=== PATIENT | male | born 1980 | race African-American/Black ===

== ENCOUNTER 2020-12-24 10:30 | Emergency (ER) | payer SELFPAY ==
[2020-12-24] MEDS ORDERED: Sodium Chloride 0.9% 1,000 ML IV STA ×2 (11:08→12:08)
--- NOTE | 2020-12-24 12:00 | EDM.PDOC ---
ED HPI GENERAL MEDICAL PROBLEM - General Chief Complaint: Drug or Alcohol Abuse Stated Complaint: [facility] Time Seen by Provider: 12/24/20 11:02 Source of Information: Reports: Patient, RN Notes Reviewed History Limitations: Reports: No Limitations - History of Present Illness INITIAL COMMENTS - FREE TEXT/NARRATIVE: Patient is a 40-year-old male brought into the emergency department by [facility] for evaluation of altered mental status. He is a traveling [employer]ILDR[employer] that works at the [employer], shelter and did not show up for work today. His fire safety manager went to check on him and he was found, somewhat obtunded. Patient reports drinking "one Stanley ". Denies any drug use. States that he does not want to be in the hospital. Reports that he occasionally smokes cigarettes on weekends. - Related Data Allergies Allergy/AdvReac Type Severity Reaction Status Date / Time No Known Allergies Allergy Verified 12/24/20 10:36 Home Meds: Home Meds lisinopriL [Lisinopril] 10 mg PO DAILY 12/24/20 [History] Past Medical History Cardiovascular History: Reports: Hypertension Social & Family History - Tobacco Use Tobacco Use Status *Q: Current Every Day Tobacco User Years of Tobacco use: 2 Packs/Tins Daily: 0.2 - Caffeine Use Caffeine Use: Reports: Coffee - Alcohol Use Days Per Week of Alcohol Use: 2 Number of Drinks Per Day: 2 Total Drinks Per Week: 4 Date of Last Drink: 12/24/20 Time of Last Drink: 10:00 - Recreational Drug Use Recreational Drug Use: No ED ROS GENERAL - Review of Systems Review Of Systems: See Below Constitutional: Reports: No Symptoms. Denies: Fever, Chills, Weakness HEENT: Reports: No Symptoms Respiratory: Reports: No Symptoms Cardiovascular: Reports: No Symptoms. Denies: Chest Pain Endocrine: Reports: No Symptoms GI/Abdominal: Reports: No Symptoms : Reports: No Symptoms Musculoskeletal: Reports: No Symptoms Skin: Reports: No Symptoms Neurological: Reports: No Symptoms Psychiatric: Reports: No Symptoms Hematologic/Lymphatic: Reports: No Symptoms Immunologic: Reports: No Symptoms - Physical Exam Exam: See Below Exam Limited By: Intoxication General Appearance: Alert, WD/WN, No Apparent Distress Eye Exam: Bilateral Eye: PERRL Respiratory/Chest: No Respiratory Distress, Lungs Clear, Normal Breath Sounds, No Accessory Muscle Use, Chest Non-Tender Cardiovascular: Normal Peripheral Pulses, Regular Rate, Rhythm, No Edema, No Gallop, No JVD, No Murmur, No Rub GI/Abdominal: Normal Bowel Sounds, Soft, Non-Tender, No Organomegaly, No Distention, No Abnormal Bruit, No Mass Neuro Exam (Abbreviated): Alert, Oriented, CN II-XII Intact, Normal Cognition, Normal Gait, Normal Reflexes, No Motor/Sensory Deficits Extremities: Normal Inspection, Normal Range of Motion, Non-Tender, No Pedal Edema, Normal Capillary Refill Psychiatric: Normal Affect, Normal Mood Skin Exam: Warm, Dry, Intact, Normal Color, No Rash Course - Vital Signs Last Recorded V/S: Last Vital Signs Temp 98.2 F 12/24/20 10:37 Pulse 113 H 12/24/20 10:37 Resp 18 12/24/20 10:37 BP 139/104 H 12/24/20 10:37 Pulse Ox 96 12/24/20 10:37 - Orders/Labs/Meds Labs: Laboratory Tests 12/24/20 12/24/20 12/24/20 Range/Units 10:35 10:35 11:37 WBC 6.08 (4.23-9.07) K/mm3 RBC 5.00 (4.63-6.08) M/mm3 Hgb 16.0 (13.7-17.5) gm/dl Hct 46.9 (40.1-51.0) % MCV 93.8 H (79.0-92.2) fl MCH 32.0 (25.7-32.2) pg MCHC 34.1 (32.2-35.5) g/dl RDW Std Deviation 50.5 H (35.1-43.9) fL Plt Count 167 (163-337) K/mm3 MPV 10.7 (9.4-12.3) fl Neut % (Auto) 58.3 (34.0-67.9) % Lymph % (Auto) 35.7 (21.8-53.1) % Bucks % (Auto) 5.3 (5.3-12.2) % Eos % (Auto) 0.2 L (0.8-7.0) Baso % (Auto) 0.3 (0.1-1.2) % Neut # (Auto) 3.55 (1.78-5.38) K/mm3 Lymph # (Auto) 2.17 (1.32-3.57) K/mm3 Bucks # (Auto) 0.32 (0.30-0.82) K/mm3 Eos # (Auto) 0.01 L (0.04-0.54) K/mm3 Baso # (Auto) 0.02 (0.01-0.08) K/mm3 Sodium 143 (136-145) mEq/L Potassium 3.4 L (3.5-5.1) mEq/L Chloride 101 (98-107) mEq/L Carbon Dioxide 24 (21-32) mEq/L Anion Gap 21.4 H (5-15) BUN 5 L (7-18) mg/dL Creatinine 1.0 (0.7-1.3) mg/dL Est Cr Clr Drug Dosing 84.87 mL/min Estimated GFR (MDRD) > 60 (>60) mL/min BUN/Creatinine Ratio 5.0 L (14-18) Glucose 97 (70-99) mg/dL Calcium 8.0 L (8.5-10.1) mg/dL Total Bilirubin 2.1 H (0.2-1.0) mg/dL AST 695 H (15-37) U/L ALT 173 H (16-63) U/L Alkaline Phosphatase 144 H (46-116) U/L Total Protein 8.4 H (6.4-8.2) g/dl Albumin 4.1 (3.4-5.0) g/dl Globulin 4.3 gm/dL Albumin/Globulin Ratio 1.0 (1-2) Urine Opiates Screen Negative (ZEHCZK=606) Ur Buprenorphine Scrn Negative (CUTOFF=10) Ur Oxycodone Screen Negative (CLY2XI=208) Urine Methadone Screen Negative (MXU4JO=704) Ur Propoxyphene Screen Negative (AYRXTL=845) Ur Barbiturates Screen Negative (JDGJXU=195) Ur Tricyclics Screen Negative (CLMKHB=147) Ur Phencyclidine Scrn Negative (CUTOFF=25) Ur Amphetamine Screen Negative (XLGWTF=377) U Methamphetamines Scrn Negative (YOMPGC=940) U Benzodiazepines Scrn Negative (XXJTSB=378) U Cocaine Metab Screen Negative (ZUWONI=645) U Marijuana (THC) Screen Negative (CUTOFF=50) Ethyl Alcohol 0.44 (0.00) gm% Meds: Medications Discontinued Medications Generic Name Dose Route Start Last Admin Trade Name Olivier PRN Reason Stop Dose Admin Sodium Chloride 1,000 mls @ 999 mls/hr 12/24/20 11:08 12/24/20 11:34 Normal Saline IV 12/24/20 12:08 999 mls/hr NOW STA Administration Sodium Chloride 1,000 mls @ 250 mls/hr 12/24/20 12:08 12/24/20 12:34 Normal Saline IV 12/24/20 16:07 250 mls/hr NOW STA Administration - Re-Assessments/Exams Free Text/Narrative Re-Assessment/Exam: Patient is a 40-year-old male brought into the emergency department for evaluation of altered mental status when he did not show up for work today. Patient reports drinking "one get is ", however after visiting with him he does seem quite intoxicated. Exam is unremarkable. I have ordered blood work including EtOH, urine drug screen, and 1 L bolus of normal saline. 12/24/20 14:06 Hematology is significant for anion gap elevated at 21.4, potassium slightly low at 3.4, total bili 2.1, AST 695, ALT 173, alkaline phosphatase 144. Blood alcohol is 0.44. Patient is resting. We will continue IV fluids until he is more sober and can find a ride home. 12/24/20 17:15 Patient is awake and sitting on the stool in his room. He is working on finding transportation home. He will be discharged home. Discharge instructions as documented. Departure - Departure Time of Disposition: 17:15 Disposition: Home, Self-Care 01 Condition: Good Clinical Impression: Alcohol intoxication Qualifiers: Complication of substance-induced condition: uncomplicated Qualified Code(s): F10.920 - Alcohol use, unspecified with intoxication, uncomplicated - Discharge Information Instructions: Alcohol Intoxication, [id number] Referrals: PCP,None [Primary Care Provider] - Forms: ED Department Discharge Additional Instructions: You were seen in the emergency department today after being found in an altered mental status. Blood work was completed and showed that you were significantly intoxicated with a blood alcohol level of 0.44 which is 5-1/2 times the legal limit. Your blood work also indicates that your liver enzymes are elevated. Recommend that you stop drinking. If you would like assistance to stop drinking, you may contact [facility] in [place]. Return to ER as needed. Sepsis Event Note (ED) - Evaluation Sepsis Screening Result: No Definite Risk
== END 2020-12-24 17:26 | disposition home or self-care (01) ==
LOC: JD.ED 10:30
DX: F10.129 Alcohol abuse with intoxication, unspecified (principal); I10 Essential (primary) hypertension; F17.210 Nicotine dependence, cigarettes, uncomplicated; Y90.0 Blood alcohol level of less than 20 mg/100 ml; Z79.899 Other long term (current) drug therapy
CPT/HCPCS: 36415; 80053; 80306; 80307; 85025; 99285; J7030; 99283